=== PATIENT | male | born 1950 | race Caucasian/White ===

== ENCOUNTER 2020-12-15 15:49 | Inpatient (IN) | payer MEDICARE ==
[2020-12-15 16:47] LABS: #Monocytes 0.8 10x3/uL (0.0-1.1); #Neutrophils 7.5 10x3/uL (1.5-8.4); %Basophils 0.2 % (0.0-2.0); %Lymphocytes 3.2 % (18.0-47.0); %Neutrophils 87.1 % (40.0-75.0); Hemoglobin 12.9 g/dL (13.5-17.5); Mean Corpuscular HGB CONC 35.2 g/dL (32.0-36.0); Mean Corpuscular Hemoglobin 29.8 pg (27.0-33.0); Mean Corpuscular Volume 84.5 fl (81.2-95.1); Mean Platelet Volume 9.7 fl (7.4-10.4); Platelet Count 304 10x3/uL (150-450); RBC Distribution Width 12.8 % (11.5-14.5); Red Blood Cell (RBC) Count 4.33 10x6/uL (4.32-5.72); White Blood Cell (WBC) Count 8.6 10x3/uL (3.5-10.5)
[2020-12-15] MEDS ORDERED: Nitroglycerin 2% Ointment 1 INCH/1 GM Packet ONE (16:49)
[2020-12-15 16:58] LABS: ALT (SGPT) 51 U/L (8-55); AST (SGOT) 51 U/L (5-34); Albumin 4.7 g/dL (3.4-4.8); Alkaline Phosphatase 73 U/L (40-110); Anion Gap 23 mmol/L (10-20); BUN (Urea Nitrogen) 11 mg/dL (8.4-25.7); Bilirubin, Total 0.8 mg/dL (0.2-1.2); Calc. Creatinine Clearance 0 mL/min (70-130); Calcium 9.8 mg/dL (7.8-10.44); Carbon Dioxide 26 mmol/L (23-31); Globulin 2.9 g/dL (2.4-3.5); Glucose 127 mg/dL (83-110); Potassium 3.7 mmol/L (3.5-5.1); Protein, Total 7.6 g/dL (5.8-8.1)
[2020-12-15 17:18] LABS: Chloride 71 mmol/L (98-107); Sodium 116 mmol/L (136-145)
[2020-12-15] MEDS ORDERED: Acetaminophen 325 MG TAB PO PRN (17:50)
[2020-12-15] MEDS ORDERED: Ondansetron ODT 4 MG TAB PO PRN (17:50)
[2020-12-15] MEDS ORDERED: Senokot S 8.6-50 MG TAB PO PRN (17:50)
[2020-12-15 19:51] VITALS: BMI 26.4
[2020-12-15 21:45] LABS: Albumin 4.3 g/dL (3.4-4.8); Anion Gap 21 mmol/L (10-20); BUN (Urea Nitrogen) 12 mg/dL (8.4-25.7); BUN/Creatinine Ratio 11.01; Calc. Creatinine Clearance 78 mL/min (70-130); Calcium 9.4 mg/dL (7.8-10.44); Carbon Dioxide 25 mmol/L (23-31); Glucose 117 mg/dL (83-110); Phosphorus 3.3 mg/dL (2.3-4.7); Potassium 3.4 mmol/L (3.5-5.1)
[2020-12-15] MEDS: Famotidine 20 MG TAB PO SCH (21:45)
[2020-12-15 21:47] LABS: Chloride 71 mmol/L (98-107); Sodium 114 mmol/L (136-145)
[2020-12-15] MEDS ORDERED: Conivaptan 20 MG in Premix Bag 1 BAG IVPB SCH (23:30)
[2020-12-16 01:46] LABS: Albumin 4.1 g/dL (3.4-4.8); Anion Gap 19 mmol/L (10-20); BUN (Urea Nitrogen) 12 mg/dL (8.4-25.7); Calc. Creatinine Clearance 91 mL/min (70-130); Carbon Dioxide 25 mmol/L (23-31); Glucose 105 mg/dL (83-110); Phosphorus 3.3 mg/dL (2.3-4.7); Potassium 3.1 mmol/L (3.5-5.1)
[2020-12-16 01:49] LABS: Chloride 73 mmol/L (98-107); Sodium 114 mmol/L (136-145)
[2020-12-16] MEDS ORDERED: Tolvaptan 15 MG TAB PO SCH (02:15)
[2020-12-16] MEDS ORDERED: TOLVAPTAN 30 MG TAB PO SCH (02:45)
[2020-12-16] MEDS ORDERED: Potassium Chloride 20 MEQ TAB PO SCH (02:45)
[2020-12-16 05:21] LABS: #Neutrophils 5.1 10x3/uL (1.5-8.4); %Basophils 0.3 % (0.0-2.0); %Eosinophils 0.1 % (0.0-6.0); %Monocytes 14.5 % (0.0-10.0); %Neutrophils 75.5 % (40.0-75.0); Hemoglobin 11.1 g/dL (13.5-17.5); Mean Corpuscular Hemoglobin 30.3 pg (27.0-33.0); Mean Corpuscular Volume 84.2 fl (81.2-95.1); Mean Platelet Volume 9.9 fl (7.4-10.4); Platelet Count 254 10x3/uL (150-450); RBC Distribution Width 12.8 % (11.5-14.5); Red Blood Cell (RBC) Count 3.66 10x6/uL (4.32-5.72); White Blood Cell (WBC) Count 6.8 10x3/uL (3.5-10.5)
[2020-12-16 05:28] LABS: Anion Gap 19 mmol/L (10-20); BUN (Urea Nitrogen) 12 mg/dL (8.4-25.7); BUN/Creatinine Ratio 13.04; Calc. Creatinine Clearance 92 mL/min (70-130); Calcium 9.1 mg/dL (7.8-10.44); Carbon Dioxide 27 mmol/L (23-31); Glucose 97 mg/dL (83-110); Phosphorus 3.2 mg/dL (2.3-4.7); Potassium 3.4 mmol/L (3.5-5.1)
[2020-12-16 05:31] LABS: Chloride 72 mmol/L (98-107); Sodium 115 mmol/L (136-145)
[2020-12-16] MEDS ORDERED: Sodium Chloride 3% 500 ML IVPB SCH ×2 (06:00→10:41)
[2020-12-16] MEDS: hydrALAZINE 20 MG/ML VIAL SLOW IVP PRN ×2 (06:35→23:42)
[2020-12-16 08:55] LABS: Sodium 118 mmol/L (136-145)
[2020-12-16] MEDS: Famotidine 20 MG TAB PO SCH ×2 (09:36→21:07)
[2020-12-16] MEDS: Enoxaparin Sodium 30 MG/0.3 ML SYRINGE SC SCH (09:37)
[2020-12-16 10:08] LABS: SARS-CoV-2 PCR by NAA Not Detected (NotDetected)
[2020-12-16 10:42] LABS: Sodium 119 mmol/L (136-145)
[2020-12-16 10:56] LABS: Chloride 77 mmol/L (98-107); Potassium 3.1 mmol/L (3.5-5.1)
[2020-12-16 10:59] LABS: Albumin 4.2 g/dL (3.4-4.8); Anion Gap 17 mmol/L (10-20); BUN (Urea Nitrogen) 13 mg/dL (8.4-25.7); Calc. Creatinine Clearance 74 mL/min (70-130); Calcium 9.3 mg/dL (7.8-10.44); Carbon Dioxide 27 mmol/L (23-31); Glucose 117 mg/dL (83-110); Phosphorus 2.6 mg/dL (2.3-4.7); Sodium 119 mmol/L (136-145)
[2020-12-16 12:38] LABS: Anion Gap 19 mmol/L (10-20); BUN (Urea Nitrogen) 13 mg/dL (8.4-25.7); BUN/Creatinine Ratio 10.57; Calc. Creatinine Clearance 69 mL/min (70-130); Calcium 9.5 mg/dL (7.8-10.44); Carbon Dioxide 26 mmol/L (23-31); Chloride 76 mmol/L (98-107); Glucose 144 mg/dL (83-110); Phosphorus 2.6 mg/dL (2.3-4.7); Potassium 3.3 mmol/L (3.5-5.1)
[2020-12-16 12:40] LABS: Sodium 118 mmol/L (136-145)
[2020-12-16 12:46] LABS: Albumin 4.3 g/dL (3.4-4.8)
[2020-12-16] MEDS: Potassium Chloride 20 MEQ TAB PO SCH ×2 (12:53→17:06)
[2020-12-16 16:55] LABS: Sodium 120 mmol/L (136-145)
[2020-12-16] MEDS: Sodium Chloride 3% 500 ML IVPB SCH ×2 (16:56→17:08)
[2020-12-16 18:18] LABS: Sodium 121 mmol/L (136-145)
[2020-12-16] MEDS ORDERED: Sterile Water 10 ML VIAL FS PRN (19:39)
[2020-12-16] MEDS ORDERED: Ziprasidone 20 MG VIAL IM SCH (19:45)
[2020-12-16] MEDS ORDERED: Lorazepam 2 MG/ML VIAL SLOW IVP SCH (21:00)
[2020-12-16 21:19] LABS: Sodium 122 mmol/L (136-145)
[2020-12-16 21:26] LABS: Anion Gap 14 mmol/L (10-20); BUN (Urea Nitrogen) 13 mg/dL (8.4-25.7); Calc. Creatinine Clearance 96 mL/min (70-130); Calcium 8.9 mg/dL (7.8-10.44); Carbon Dioxide 27 mmol/L (23-31); Chloride 84 mmol/L (98-107); Glucose 106 mg/dL (83-110); Magnesium 1.4 mg/dL (1.6-2.6); Potassium 3.9 mmol/L (3.5-5.1); Sodium 121 mmol/L (136-145)
[2020-12-16 21:30] LABS: Troponin I 0.022 ng/mL (< 0.028)
[2020-12-16] MEDS ORDERED: Magnesium 2 GM/50 ML 2 GM in Premix Bag 1 BAG IVPB SCH (23:00)
[2020-12-17] MEDS: Lorazepam 2 MG/ML VIAL SLOW IVP PRN ×4 (00:59→17:44)
[2020-12-17 04:42] LABS: #Monocytes 0.7 10x3/uL (0.0-1.1); #Neutrophils 3.2 10x3/uL (1.5-8.4); %Basophils 0.7 % (0.0-2.0); %Eosinophils 0.4 % (0.0-6.0); %Lymphocytes 13.1 % (18.0-47.0); %Monocytes 14.2 % (0.0-10.0); %Neutrophils 70.9 % (40.0-75.0); Hemoglobin 11.3 g/dL (13.5-17.5); Mean Corpuscular HGB CONC 34.7 g/dL (32.0-36.0); Mean Corpuscular Hemoglobin 29.9 pg (27.0-33.0); Mean Corpuscular Volume 86.2 fl (81.2-95.1); Mean Platelet Volume 9.8 fl (7.4-10.4); Platelet Count 239 10x3/uL (150-450); RBC Distribution Width 13.3 % (11.5-14.5); Red Blood Cell (RBC) Count 3.78 10x6/uL (4.32-5.72); White Blood Cell (WBC) Count 4.6 10x3/uL (3.5-10.5)
[2020-12-17 04:57] LABS: Anion Gap 16 mmol/L (10-20); BUN (Urea Nitrogen) 10 mg/dL (8.4-25.7); Calc. Creatinine Clearance 100 mL/min (70-130); Calcium 9.2 mg/dL (7.8-10.44); Carbon Dioxide 26 mmol/L (23-31); Chloride 90 mmol/L (98-107); Glucose 98 mg/dL (83-110); Potassium 3.5 mmol/L (3.5-5.1); Sodium 128 mmol/L (136-145)
[2020-12-17] MEDS ORDERED: Carvedilol 6.25 MG TAB PO SCH ×2 (08:15→17:00)
[2020-12-17 09:10] LABS: Sodium 128 mmol/L (136-145)
[2020-12-17] MEDS: Thiamine 100 MG TAB PO SCH (10:08)
[2020-12-17] MEDS: Lisinopril 20 MG TAB PO SCH (10:09)
[2020-12-17] MEDS: Famotidine 20 MG TAB PO SCH ×2 (10:09→20:41)
[2020-12-17] MEDS: Enoxaparin Sodium 30 MG/0.3 ML SYRINGE SC SCH (10:10)
[2020-12-17] MEDS: Sodium Bicarbonate Tab 325 MG TAB PO SCH ×2 (16:11→20:41)
[2020-12-17] MEDS: hydrALAZINE 20 MG/ML VIAL SLOW IVP PRN (20:40)
[2020-12-17] MEDS ORDERED: Atorvastatin Calcium 10 MG TAB PO SCH (21:00)
[2020-12-18] MEDS: hydrALAZINE 20 MG/ML VIAL SLOW IVP PRN ×2 (00:09→04:07)
[2020-12-18 06:24] LABS: Anion Gap 17 mmol/L (10-20); BUN (Urea Nitrogen) 10 mg/dL (8.4-25.7); Calc. Creatinine Clearance 106 mL/min (70-130); Calcium 9.6 mg/dL (7.8-10.44); Carbon Dioxide 25 mmol/L (23-31); Chloride 90 mmol/L (98-107); Glucose 98 mg/dL (83-110); Potassium 3.2 mmol/L (3.5-5.1); Sodium 129 mmol/L (136-145)
[2020-12-18] MEDS ORDERED: Potassium Chloride 20 MEQ TAB PO SCH (08:00)
[2020-12-18] MEDS: Thiamine 100 MG TAB PO SCH (08:50)
[2020-12-18] MEDS: Famotidine 20 MG TAB PO SCH (08:50)
[2020-12-18] MEDS: Sodium Bicarbonate Tab 325 MG TAB PO SCH (08:50)
[2020-12-18] MEDS: Lisinopril 20 MG TAB PO SCH (08:50)
[2020-12-18] MEDS: Enoxaparin Sodium 30 MG/0.3 ML SYRINGE SC SCH (08:51)
[2020-12-18] MEDS ORDERED: Amlodipine 10 MG TAB PO SCH (11:45)
[2020-12-18 13:25] VITALS: BP 167/56; TEMP 98.1
[2020-12-18] MEDS ORDERED: Lisinopril 20 MG TAB PO SCH (21:00)
[2020-12-19] MEDS ORDERED: Amlodipine 10 MG TAB PO SCH (09:00)
== END 2020-12-18 16:35 | disposition home or self-care (01) | DRG 643 ==
LOC: CSHERS 15:49 → SUATTDRO 15:49 → CSHTELE 19:47 → CSHICU 12-16 05:36 → CSHIMCU 12-16 18:04 → CSHTELE 12-17 17:12
PROVIDERS: ADMIT Family Medicine; ATTEND Hospitalist
DX: E22.2 Syndrome of inappropriate secretion of antidiuretic hormone (principal); G93.41 Metabolic encephalopathy; Z20.822 Contact with and (suspected) exposure to COVID-19; E78.5 Hyperlipidemia, unspecified; I16.0 Hypertensive urgency; F10.10 Alcohol abuse, uncomplicated; Z91.14 Patient's other noncompliance with medication regimen; Z79.899 Other long term (current) drug therapy
CPT/HCPCS: 36415; 71045; 80048; 80053; 80069; 82607; 82746; 83735; 83880; 83935; 84300; 84425; 84443; 84484; 85025; 87635; 93005; 93010; J0360; J1650; J2060; J3475; J7131; U0003; U0005